=== PATIENT | male | born 1970 | race Caucasian/White ===

== ENCOUNTER 2020-07-04 11:12 | Emergency (ER) | payer OTHER ==
[~2020-07-04] VITALS: Ht 170.2 cm; Wt 74.8 kg
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
--- NOTE | 2020-07-04 11:42 | NUR ---
XRAY AND ULTRASOUND AT BEDSIDE
--- NOTE | 2020-07-04 13:04 | NUR ---
CALLED DR LEWIS, LEFT VOICEMAIL
[2020-07-04] MEDS ORDERED: ACET-73 PO (13:14)
--- NOTE | 2020-07-04 13:28 | NUR ---
Patient discharged to home in stable condition. Written and verbal after care instructions given. Patient verbalizes understanding of instruction. Pt ambulatory with a steady gait
[2020-07-04 13:35] VITALS: BP 138/82
== END 2020-07-04 13:35 | disposition home or self-care (01) ==
LOC: ER 11:22
DX: S30.22XA Contusion of scrotum and testes, initial encounter (principal); N43.3 Hydrocele, unspecified; V49.69XA Unspecified car occupant injured in collision with other motor vehicles in traffic accident, initial encounter; Y93.89 Activity, other specified; Y92.413 State road as the place of occurrence of the external cause; Y99.8 Other external cause status
CPT/HCPCS: 72170-TC; 76870-TC

== ENCOUNTER 2021-11-28 16:12 | Emergency (ER) | payer OTHER ==
[~2021-11-28] VITALS: Ht 167.6 cm; Wt 68.0 kg
[~2021-11-28 16:12] MED LIST: ACET-73 PO
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
[2021-11-28] MEDS ORDERED: KETOROLAC TROMETHAMINE 15 MG/ML VIAL ONE (17:47)
[2021-11-28] MEDS ORDERED: HYDROCODONE/APAP 5/325MG TABLET ONE (17:48)
[2021-11-28] MEDS ORDERED: HYDR-4209 PO (17:52)
[2021-11-28] MEDS ORDERED: IBUP-1955 PO (17:52)
[2021-11-28] MEDS ORDERED: CYCL5TAB PO (17:52)
[2021-11-28] MEDS ORDERED: PRED20TA PO (17:52)
[2021-11-28] MEDS ORDERED: KETOROLAC TROMETHAMINE INJ 30 MG/ML VIAL IM ONE (18:00)
[2021-11-28] MEDS ORDERED: HYDROCODONE/APAP 5/325MG TABLET PO ONE (18:00)
--- NOTE | 2021-11-28 18:08 | NUR ---
Patient discharged to home in stable condition. Written and verbal after care instructions given. Patient verbalizes understanding of instruction.
[2021-11-28 18:09] VITALS: BP 124/86
== END 2021-11-28 18:09 | disposition home or self-care (01) ==
LOC: ER 16:18
DX: M54.41 Lumbago with sciatica, right side (principal); F17.200 Nicotine dependence, unspecified, uncomplicated; Z79.1 Long term (current) use of non-steroidal anti-inflammatories (NSAID)
CPT/HCPCS: 99283; 96372; J1885

== ENCOUNTER → 2022-03-18 | Emergency (ER) | payer OTHER ==
[~2022-03-18] VITALS: Ht 167.6 cm; Wt 68.0 kg
[~2022-03-18] MED LIST changes: +CIPR2.5D14 LEFTEYE; +CYCL2DRO5 LEFTEYE; +CYCL5TAB PO; +FLUORESCEIN SODIUM OPHTH 1 EA STRIP ONE; +HYDR-4209 PO; +IBUP-1955 PO; +PRED20TA PO
[2022-03-18 18:29] VITALS: BP 107/76
== END ==
LOC: ER 18:25
DX: S05.02XA Injury of conjunctiva and corneal abrasion without foreign body, left eye, initial encounter (principal); I10 Essential (primary) hypertension; Z79.899 Other long term (current) drug therapy; W22.8XXA Striking against or struck by other objects, initial encounter; Y93.89 Activity, other specified; Y92.89 Other specified places as the place of occurrence of the external cause; Y99.8 Other external cause status

== ENCOUNTER 2023-11-27 20:32 | Emergency (ER) | payer OTHER ==
[~2023-11-27] VITALS: Ht 167.6 cm; Wt 68.0 kg
[~2023-11-27 20:32] MED LIST changes: -FLUORESCEIN SODIUM OPHTH 1 EA STRIP ONE
[2023-11-27 20:56] VITALS: BP 133/84; TEMP 98.4; O2SAT 97
[2023-11-27] MEDS ORDERED: DIPH28.33 TP (21:15)
[2023-11-27] MEDS ORDERED: CEPH-570 PO (21:15)
[2023-11-27] MEDS ORDERED: DICL100G34 TP (21:15)
== END 2023-11-27 21:19 | disposition home or self-care (01) ==
LOC: ER 20:32
DX: S70.362A Insect bite (nonvenomous), left thigh, initial encounter (principal); S70.361A Insect bite (nonvenomous), right thigh, initial encounter; S60.562A Insect bite (nonvenomous) of left hand, initial encounter; L03.116 Cellulitis of left lower limb; L03.115 Cellulitis of right lower limb; I10 Essential (primary) hypertension; F17.200 Nicotine dependence, unspecified, uncomplicated; W57.XXXA Bitten or stung by nonvenomous insect and other nonvenomous arthropods, initial encounter; Y93.89 Activity, other specified; Y92.098 Other place in other non-institutional residence as the place of occurrence of the external cause; Y99.8 Other external cause status